=== PATIENT | male | born 1950 | race Caucasian/White ===

== ENCOUNTER 2022-09-16 14:50 | Outpatient (AMB) | payer MEDICARE, SELFPAY ==
--- NOTE | 2022-09-16 15:15 | AM.OFFWIN_ITS ---
Intake Vital Signs 09/16/22 15:21 BP 116/70 Blood Pressure Location Rt brachial Position Sitting Pulse 57 Pulse Source Pulse Oximeter Pulse Oximetry (%) 99 Oxygen Delivery Method Room Air Intake Visit Reasons: [employer] fall,leg, arm pain (lobby) Intake Note: Patient here because he had a fall last night, he is bruised all over his body, has wound on left side of forehead, right big toe is very bruised. Patient Tobacco Use Status: Former Tobacco user Allergies No Known Allergies Allergy (Verified 09/16/22 15:20) Do you need a note to return to daycare/school/sports/work: No HPI HPI Comments History of Present Illness Details This is a 72-year-old female who presents to the office today following a fall. Patient states he stood up from the couch and his foot got caught in the blanket causing him to fall on the right side of his body last night. He states he hit his head and has a headache. He denies any nausea/vomiting, photophobia/phonophobia, visual disturbances, slurred speech, facial asymmetry, or numbness/weakness/paresthesias of extremities. He reports right shoulder and upper arm pain, right knee pain, right ankle pain, and right toe pain. Patient is on anticoagulation with apixaban and he utilizes anti-platelet medications as well. Patient denies any chest pain or shortness of breath and lightheadedness or dizziness prior to the fall. He states it was truly a mechanical trip and fall. FORMERLY [facility] Social History Patient Tobacco Use Status: Former Tobacco user Review of Systems Const All systems reviewed & are unremarkable except as noted in HPI and below Reports no additional complaints Eyes Reports no additional complaints ENT Reports no additional complaints Card Reports no additional complaints Resp Reports no additional complaints GI Reports no additional complaints Reports no additional complaints Musc Reports as per HPI Skin/Breast Reports system reviewed and no additional complaints, except as documented Neuro Reports as per HPI and Denies Abnormal speech present Psych Reports no additional complaints Endo Reports no additional complaints Griffin/Lymph Reports no additional complaints Aller/Immun Reports no additional complaints Physical Exam Vital Signs: Last Vital Signs Pulse 57 09/16/22 15:21 BP 116/70 09/16/22 15:21 Pulse Ox 99 09/16/22 15:21 Oxygen Delivery Method Room Air 09/16/22 15:21 Const General: cooperative, healthy appearing, comfortable, no acute distress and well developed Orientation/consciousness: patient oriented x3 HEENT Other: Abrasion to the forehead. No Kunz sign or raccoon eyes. Ears: hearing grossly normal bilaterally General nose exam: Normal external nose present Face and sinus: Yes normal facial exam Mouth: Normal oral and palatal mucosa present Teeth and gingiva: dentition normal Eyes Pupils: Equal, round and reactive pupils present Resp Effort & Inspection: normal respiratory effort Auscultation: clear to auscultation bilaterally, no crackles, no rales, no rhonchi and no wheezes Cardio Rate: regular rate Rhythm: regular rhythm Heart sounds: no gallops, no murmurs and no rubs GI Inspection: Yes normal to inspection and No distended Palpation (GI): Soft to palpation and nontender Skin General skin exam: no rashes or lesions noted Neuro General: patient oriented x3 Cranial nerves: Yes CN's II-XII intact bilaterally, Yes Facial sensation intact/muscles of mastication intact, Yes Equal, round and reactive pupils present and Yes Bilaterally intact EOM present Cognition (Neuro): normal cognition Speech: No Abnormal speech present Gait exam (Neuro): Normal gait present Motor exam (neuro): 5/5 motor strength present throughout Coordination: [id number] test normal Extrem Other: Significant ecchymosis and edema of the right great toe with tenderness to palpation. Some tenderness to palpation of the medial and lateral malleoli of the right ankle but no swelling or ecchymosis noted of the ankle. Ecchymosis of the right knee with diffuse tenderness to palpation. No tenderness to palpation or signs of injury/deformity to the right hip. Several abrasions noted to the right upper arm. Tenderness to palpation of the right shoulder and upper arm diffusely. Patient does have full range of motion of joints throughout the body but it is painful. Assessment & Plan Assessment & Plan (1) Fall: Code(s): W19.XXXA - Unspecified fall, initial encounter Plan: This is a 72-year-old male who presents to the office with right toe, right ankle, right knee, right shoulder, and right upper arm pain status post a mechanical fall that occurred last night. Patient hit his head and is complaining of a mild headache. Patient is on anticoagulation with apixaban so it was recommended the patient proceed directly to the emergency room for CT head to rule out acute intracranial bleed. However, patient adamantly declines going to the emergency room. I voiced my concerns with the patient and his especially because patient is on anticoagulation, but he continues to decline. Patient agrees to proceed directly to the emergency room if he were to develop any neurological symptoms or signs of increased intracranial pressure including worsening headaches, nausea/vomiting, lethargy, altered mental status, photophobia/phonophobia, seizure-like activity, slurred speech, or facial asymmetry. Patient underwent x-ray of the right foot and ankle, x-ray of the right humerus, x-ray of the right shoulder, an x-ray of the right tibia fibula. All of these x-rays were negative for acute fracture dislocation. Recommended rest/activity modification, ice to the areas, elevation of extremities, and acetaminophen for pain management. I again strongly encouraged patient to proceed to the emergency room for further neurological imaging but he again declined. Orders: Orders XR ankle RT 2V Today R52 - Pain, unspecified XR foot RT 2V Today R52 - Pain, unspecified XR humerus RT Today R52 - Pain, unspecified XR shoulder RT min 2V Today R52 - Pain, unspecified XR tibia fibula RT 2V Today R52 - Pain, unspecified Coding Level of Care Code New Pt Level 3 (11720) Diagnoses Fall W19.XXXA
[2022-09-16 15:21] VITALS: BP 116/70; PULSE 57; O2SAT 99
== END 2022-09-16 16:13 | disposition home or self-care (01) ==
PROVIDERS: Visit Provider Physician Assistant Medical
DX: M79.601 Pain in right arm (principal); M25.511 Pain in right shoulder; M79.671 Pain in right foot; W19.XXXA Unspecified fall, initial encounter
CPT/HCPCS: 99203

== ENCOUNTER 2022-09-16 15:41 | Outpatient (REF) | payer MEDICARE, SELFPAY ==
--- NOTE | ~2022-09-16 | XR_ITS ---
EXAMINATION: XR foot RT 2V, XR tibia fibula RT 2V, XR ankle RT 2V CLINICAL INFORMATION: Pain COMPARISON: None. TECHNIQUE: 2 views of the right tibia and fibula. 2 views of the right ankle. 3 views of the right foot. FINDINGS: Right tibia/fibula: No fracture or cortical disruption. Appropriate alignment at the knee. Soft tissue swelling anterior to the patellar tendon. Right ankle: No fracture or dislocation. The ankle mortise is congruent. No ankle joint effusion. Severe hypertrophic spurring at the plantar aponeurosis and Achilles insertion to the calcaneus. Right foot: No fracture or dislocation. Appropriate alignment in the foot. The soft tissues are unremarkable. XR/XR foot RT 2V IMPRESSION: No fracture or malalignment involving the imaged right lower extremity. Prominent heel spurs. Soft tissue swelling anterior to the patellar tendon.
--- NOTE | ~2022-09-16 | XR_ITS ---
EXAMINATION: XR foot RT 2V, XR tibia fibula RT 2V, XR ankle RT 2V CLINICAL INFORMATION: Pain COMPARISON: None. TECHNIQUE: 2 views of the right tibia and fibula. 2 views of the right ankle. 3 views of the right foot. FINDINGS: Right tibia/fibula: No fracture or cortical disruption. Appropriate alignment at the knee. Soft tissue swelling anterior to the patellar tendon. Right ankle: No fracture or dislocation. The ankle mortise is congruent. No ankle joint effusion. Severe hypertrophic spurring at the plantar aponeurosis and Achilles insertion to the calcaneus. Right foot: No fracture or dislocation. Appropriate alignment in the foot. The soft tissues are unremarkable. XR/XR tibia fibula RT 2V IMPRESSION: No fracture or malalignment involving the imaged right lower extremity. Prominent heel spurs. Soft tissue swelling anterior to the patellar tendon.
--- NOTE | ~2022-09-16 | XR_ITS ---
EXAMINATION: XR foot RT 2V, XR tibia fibula RT 2V, XR ankle RT 2V CLINICAL INFORMATION: Pain COMPARISON: None. TECHNIQUE: 2 views of the right tibia and fibula. 2 views of the right ankle. 3 views of the right foot. FINDINGS: Right tibia/fibula: No fracture or cortical disruption. Appropriate alignment at the knee. Soft tissue swelling anterior to the patellar tendon. Right ankle: No fracture or dislocation. The ankle mortise is congruent. No ankle joint effusion. Severe hypertrophic spurring at the plantar aponeurosis and Achilles insertion to the calcaneus. Right foot: No fracture or dislocation. Appropriate alignment in the foot. The soft tissues are unremarkable. XR/XR ankle RT 2V IMPRESSION: No fracture or malalignment involving the imaged right lower extremity. Prominent heel spurs. Soft tissue swelling anterior to the patellar tendon.
--- NOTE | ~2022-09-16 | XR_ITS ---
EXAMINATION: 1. Right humerus. 2. Right shoulder. CLINICAL INFORMATION: Pain. COMPARISON: None. TECHNIQUE: 1. Right humerus. 2 views 2. Right shoulder. 3 views FINDINGS: 1. Right humerus. No fracture. No focal bone lesion. No soft tissue abnormality. 2. Right shoulder. No fracture. No dislocation. There is moderate degenerative change of the common clavicular joint. Bone spurs at both superior and inferior margin of the joint. No soft tissue calcification. XR/XR shoulder RT min 2V IMPRESSION: 1. Right humerus. Normal. 2. Right shoulder. No acute abnormality. Moderate degenerative change of the acromioclavicular joint.
--- NOTE | ~2022-09-16 | XR_ITS ---
EXAMINATION: 1. Right humerus. 2. Right shoulder. CLINICAL INFORMATION: Pain. COMPARISON: None. TECHNIQUE: 1. Right humerus. 2 views 2. Right shoulder. 3 views FINDINGS: 1. Right humerus. No fracture. No focal bone lesion. No soft tissue abnormality. 2. Right shoulder. No fracture. No dislocation. There is moderate degenerative change of the common clavicular joint. Bone spurs at both superior and inferior margin of the joint. No soft tissue calcification. XR/XR humerus RT IMPRESSION: 1. Right humerus. Normal. 2. Right shoulder. No acute abnormality. Moderate degenerative change of the acromioclavicular joint.
== END 2022-09-16 15:42 | disposition home or self-care (01) ==
LOC: HO.HMGCX 15:41
PROVIDERS: PCP Internal Medicine; Visit Provider Physician Assistant Medical
DX: M79.651 Pain in right thigh (principal); M25.511 Pain in right shoulder; M79.671 Pain in right foot; M25.571 Pain in right ankle and joints of right foot; M79.661 Pain in right lower leg
CPT/HCPCS: 73030; 73060; 73590; 73600; 73620